=== PATIENT | female | born 1980 | race American Indian/Alaskan Native ===

== ENCOUNTER 2018-09-11 15:42 | Emergency (ER) | payer BC ==
[2018-09-11 15:45] VITALS: BMI 32.1
[2018-09-11] MEDS ORDERED: Betamethasone Soluspan 30 mg/5mL Inj Susp IM ONE (15:45)
--- NOTE | 2018-09-11 17:58 | OBHP ---
Datetime: 09/11/2018 16:06 IP Adm Impression: , intrauterine IP Admit Plan: Observation/Evaluation; Discharge home Admit Comment, IP Provider: 38-year-old at 36.0 weeks EGA of di-di twin presents f or first betamethasone injection. No complications with thus far, scheduled repeat c/s this 09/15. First resulted in c/s as pt was induced 10 days after EDDIE and failed to dil ate. OBGYN Dr Dorantes, last seen (3 days prior to presentation). Denies vaginal bleeding, loss of fluid and contractions. Endorses good movement. Denies change in vision, headache, dizzines s, CP, SOB, new-onset edema, nausea and vomiting. PMD: Dr Dorantes, next apt 09/14 PMH: hypothyroid Meds: levothyroxine 50mcg daily Allergy: shrimp, NKDA Surg Hx: c/s 2006, no complications Family Hx: denies Labs: wnl as per patient, no conifrmatory medical records ROS: all other systems reviewed and negative unless noted in HPI PE: Gen: NAD, comfortable, VSS CV: RRR Resp: no resp distress Ext: no edema Abd: IUP, no tenderness to palpation A+P: 38-year-old at 36.0 weeks EGA of di-di twin presents for first betamethason e injection. -EFM: reassuring, Twin A FHR 140, Twin B FHR 133, accelerations present, mod variability -Beta IM (#1 of 2) -Return 24h for second injection -F/u with PMD at regularly scheduled apt 09/14 -ED precautions given Case discussed with Dr Emmanuel Bernstein PGY1 Addendum by Dr. Benitez: I have evaluated the patient independently and I agree with the above Pelvic Type - PN: Not Done Extremities - PN: Normal Abdomen - PN: Normal Back - PN: Normal Breast - PN: Not Done Lungs - PN: Normal Heart - PN: Normal Thyroid - PN: Not Done Neurologic - PN: Normal HEENT - PN: Normal General - PN: Normal Vital Signs Provider: Reviewed; Within Normal Limits IP Chief Complaint: Other NICHD Variability Prov Fetus A: Moderate 6-25bpm NICHD Accel Fetus A IP Provider: [id number] NICHD Decel Fetus A IP Provider: None Genitourinary Exam: Not Done DTRs - PN: Not Done
--- NOTE | 2018-09-11 18:10 | OBDCSUM ---
Datetime: 09/11/2018 16:38 Discharged to, Provider: Home Follow up at, Provider: Dr Dorantes Disch Instr Activity: Normal activity Disch Instr Diet: Regular Discharge Time: 09/11/2018 16:39 Follow up in weeks, Provider: 09/14/2018 Disch Referrals: None Discharge Diagnosis Prov Other: encounter for other specified prophylactic measures
== END 2018-09-11 16:30 | disposition home or self-care (01) ==
LOC: H.EROB2 15:42
DX: O30.003 Twin pregnancy, unspecified number of placenta and unspecified number of amniotic sacs, third trimester (principal); Z23 Encounter for immunization; Z87.59 Personal history of other complications of pregnancy, childbirth and the puerperium
CPT/HCPCS: 96372; 99281; J0702

== ENCOUNTER 2018-09-12 16:23 | Emergency (ER) | payer BC ==
[2018-09-11 15:45] VITALS: BMI 32.1
[2018-09-12] MEDS ORDERED: Betamethasone Soluspan 30 mg/5mL Inj Susp IM ONE (16:36)
--- NOTE | 2018-09-12 18:26 | OBHP ---
Datetime: 09/12/2018 16:42 IP Adm Impression: , intrauterine IP Chief Complaint Other: second dose of beta methasone IP Admit Plan: Observation/Evaluation; Discharge home Admit Comment, IP Provider: 38-year-old at 36.1 weeks EGA of di-di twin presents f or first betamethasone injection. No complications with thus far, scheduled repeat c/s this 09/15. First resulted in c/s as pt was induced 10 days after EDDIE and failed to dil ate. Denies vaginal bleeding, loss of fluid and contractions. Endorses movement. Denies change in vision, headache, dizziness, CP, SOB, new-onset edema, nausea and vomiting. PMD: Dr Dorantes, next apt 09/14 PMH: hypothyroid Meds: levothyroxine 50mcg daily Allergy: shrimp, NKDA Surg Hx: c/s 2006, no complications Family Hx: denies Labs: wnl as per patient, no conifrmatory medical records ROS: all other systems reviewed and negative unless noted in HPI PE: Gen: NAD, comfortable, VSS CV: normal breathing effort, RRR Resp: no resp distress Ext: no edema Abd: IUP, no tenderness to palpation A+P: 38-year-old at 36.1 weeks EGA of di-di twin presents for second betamethaso ne injection. -EFM: reassuring, Twin A FHR 150, Twin B FHR 140, accelerations present, mod variability -Beta IM (#2 of 2) -F/u with PMD at regularly scheduled apt 09/14 -ED precautions given Case discussed with Dr. Marla Qureshi [email or web address] OB Hospitalist Addendum: Pt seen and examined by me. 38 yo at 36+1 wks w/ di/di twin ges tation, scheduled for repeat section on ., 09/15/2018, here for second dose of betameth asone for lung matrurity. Baby A- FHT reactive, Baby B -FHT reactive. Pt discharged home, has a f/u appoint w/ Dr. Dorantes on Wed., 09/14/2018. (ES) Pelvic Type - PN: Not Done Extremities - PN: Normal Abdomen - PN: Normal Back - PN: Normal Breast - PN: Not Done Lungs - PN: Normal Heart - PN: Normal Thyroid - PN: Not Done Neurologic - PN: Not Done HEENT - PN: Not Done General - PN: Normal FHR - Baseline A Provider: 120's Contraction Comments Provider: none Gestation - Est Wks by US: 36.1 EGA AdmitDate IP: 36.1 Vital Signs Provider: Reviewed; Within Normal Limits IP Chief Complaint: Other NICHD Variability Prov Fetus A: Moderate 6-25bpm NICHD Accel Fetus A IP Provider: 15X15 FHR Category Provider Fetus A: Category I NICHD Decel Fetus A IP Provider: None Genitourinary Exam: Not Done DTRs - PN: Not Done
--- NOTE | 2018-09-12 18:26 | OBDCSUM ---
Datetime: 09/12/2018 18:13 Discharged to, Provider: Home Follow up at, Provider: Dr Dorantes Disch Instr Activity: Normal activity; May be up to bathroom; May be up for meals; May Shower Disch Instr Diet: Regular Discharge Time: 09/12/2018 18:14 Follow up in weeks, Provider: August and on August schedule for C-S Disch Referrals: None Disch Activity Restrictions: Nothing in vagina - [place], tampons, douche Discharge Diagnosis Prov Other: Di/di twin gestation at 36+ weeks for second dose of betamethasone
[2018-09-12 22:57] VITALS: BP 132/88; PULSE 107; O2SAT 100
== END 2018-09-12 18:20 | disposition home or self-care (01) ==
LOC: H.EROB2 16:23
DX: O30.003 Twin pregnancy, unspecified number of placenta and unspecified number of amniotic sacs, third trimester (principal); Z23 Encounter for immunization; Z3A.36 36 weeks gestation of pregnancy
CPT/HCPCS: 96372; 99282; J0702

== ENCOUNTER 2018-09-15 08:25 | Inpatient (IN) | payer BC ==
[2018-09-15] MEDS ORDERED: ceFAZolin 2 GM in Sodium Chloride 0.9% 100 ML IVPB ONE (08:27)
[2018-09-15] MEDS ORDERED: Lactated Ringer's 1,000 ML IV ONE (08:27)
[2018-09-15] MEDS ORDERED: Lactated Ringer's 1,000 ML IV SCH (08:30)
[2018-09-15] MEDS ORDERED: Oxytocin 30 UNIT in NS 500 ml 30 UNITS/500 ML BAG IV ONE (08:33)
[2018-09-15] MEDS ORDERED: OXYTOCIN/0.9 % NS 20 UNIT/1,000 ML BAG IV ONE (08:33)
--- NOTE | 2018-09-15 09:08 | OBADHP ---
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 PMH: ANemia PSH: denies FHX: denies MEDS; PNS< SHX: negative x 3 A/P @ 36+ wks di/di twins in labor admit to L+D npo, ivrf told vs pltcs dw paeitn pt opted for cxs Pelvic Type - PN: Adequate Extremities - PN: Normal Abdomen - PN: Normal Back - PN: Normal Breast - PN: Normal Lungs - PN: Normal Heart - PN: Normal Thyroid - PN: Normal Neurologic - PN: Normal HEENT - PN: Normal General - PN: Normal Presentation-Admit: Vertex FHR - Baseline A Provider: 140 Membranes, Provider: Intact Contraction Comments Provider: q 3-5 min Gestation - Est Wks by US: 36.4 IP Hx Assessment: The History has been Reviewed and is Current Vital Signs Provider: Reviewed IP Chief Complaint: Uterine contractions NICHD Variability Prov Fetus A: Moderate 6-25bpm FHR Category Provider Fetus A: Category I NICHD Decel Fetus A IP Provider: None Dilatation, Provider: 2 Effacement, Provider: 50 Station, Provider: -2 Genitourinary Exam: Normal DTRs - PN: Normal EGA AdmitDate IP: 36.4 IP Adm Impression: , intrauterine IP Admit Plan: Admit to unit Datetime: 09/12/2018 16:42 IP Chief Complaint Other: second dose of beta methasone NICHD Accel Fetus A IP Provider: 15X15
[2018-09-15 09:12] LABS: BASO # 0.1 K/uL (0.0-0.2); BASO % 0.6 % (0.0-2.0); EOS % 0.5 % (0.0-4.0); HEMOGLOBIN 10.4 g/dL (12.0-16.0); LYMPH % 22.6 % (20.0-40.0); MEAN CELL VOLUME 81.6 fl (81.0-99.0); MEAN CORPUSCULAR HGB CONC 33.1 g/dL (33.0-37.0); MEAN PLATELET VOLUME 9.8 fl (7.2-11.7); MONO # 0.9 K/uL (0.0-0.8); MONO % 10.5 % (0.0-10.0); NEUT # 5.9 K/uL (1.8-7.0); NEUT % 65.8 % (50.0-75.0); NRBC % 0.2 % (0.0-0.0); RBC 3.84 Mil/uL (3.80-5.20); RED CELL DISTRIBUTION WIDTH 15.7 % (11.5-14.5); WHITE BLOOD COUNT 8.9 K/uL (4.8-10.8)
[2018-09-15] MEDS ORDERED: Oxycodone/Acetaminophen 5/325 mg Tab PO PRN ×4 (10:41→14:05)
--- NOTE | 2018-09-15 11:28 | OBDS ---
DELIVERY PERSONNEL Delivery Doctor: Michelle Dorantes MD Scrub Nurse: Michelle Vance OBT Driller Multiple Spindle: MSusan Ruiz; Chris Morales Anesthesiologist: Dr. Ward MATERNAL INFORMATION Delivery Anesthesia: Spinal Medications in Delivery: Ancef 2g; Lactated Ringers Maternal Complications: None Provider Comments: repaet cxs uncompliated live male infant chase breech baby a, cehpacl bay b aprs 9,9 for boht baby ebl 800ml melanie uteur, tues and ovarie b/l peds [facility] for [facility] LABOR SUMMARY EDC: 10/09/2018 00:00 No. Babies in Womb: 2 LABOR INFORMATION Group B Beta Strep: Not Done STAGES OF LABOR Stage 3 hrs: 0 Stage 3 min: 2 VAGINAL DELIVERY Episiotomy: None Laceration Extension: N/A Laceration Type: None CSECTION DELIVERY Primary Indication: Multiple Gestation Secondary Indication: N/A CSection Urgency: Non Elective CSection Incidence: Repeat Labor: N/A CSection Incision: Lower Uterine Transverse BABY A INFORMATION Infant Delivery Date/Time: 09/15/2018 10:58 Method of Delivery: Born in Route : No : N/A Forceps: N/A Vacuum Extraction: N/A Shoulder Dystocia : No SHOULDER DYSTOCIA BABY A Infant Delivery Date/Time: 09/15/2018 10:58 PRESENTATION/POSITION BABY A Presentation: Breech PLACENTA INFORMATION BABY A Placenta Delivery Time : 09/15/2018 11:00 Placenta Method of Delivery: Expressed Placenta Status: Delivered INFANT INFORMATION BABY A Gestational Age at Delivery: 36.4 Gestational Status: Outcome : Liveborn Infant Condition : Stable Infant Sex: Male IDENTIFICATION/MEDS BABY A ID Band Location: Left Leg; Left Arm CORD INFORMATION BABY A No. Cord Vessels: 3 Nuchal Cord : N/A Cord Blood Taken: Yes ASSESSMENT BABY A Infant Complications: None Physical Findings at Delivery: Within Normal Limits Infant Respirations: Appears Normal Hearing Screen Coordinator/ALS Called : No
[2018-09-15] MEDS: Lactated Ringer's 1,000 ML IV SCH (20:30)
[2018-09-16] MEDS: Lactated Ringer's 1,000 ML IV SCH (04:13)
[2018-09-16 05:33] LABS: HEMOGLOBIN 9.5 g/dL (12.0-16.0); MEAN CELL VOLUME 81.4 fl (81.0-99.0); MEAN CORPUSCULAR HEMOGLOBIN 26.9 pg (27.0-31.0); MEAN CORPUSCULAR HGB CONC 33.1 g/dL (33.0-37.0); RBC 3.53 Mil/uL (3.80-5.20); RED CELL DISTRIBUTION WIDTH 15.4 % (11.5-14.5); WHITE BLOOD COUNT 16.7 K/uL (4.8-10.8)
[2018-09-16] MEDS: Multivitamin With Minerals Tab PO SCH (08:35)
[2018-09-16] MEDS ORDERED: Multivitamin With Minerals Tab PO SCH (09:00)
[2018-09-16] MEDS ORDERED: Simethicone 80 mg Chewtab PO SCH (16:00)
[2018-09-16] MEDS: Simethicone 80 mg Chewtab PO SCH ×2 (16:42→22:22)
--- NOTE | 2018-09-16 20:16 | OBPPN ---
Datetime: 09/16/2018 20:13 PP Pain Prov: Within normal limits PP Nausea Prov: Denies PP Flatus Prov: Yes PP BM Prov: Yes PP Breasts Prov: Normal PP Heart Prov: Normal PP Lungs Prov: Normal PP Abdomen/Uterus Prov: Normal PP Lochia Prov: Normal PP Vulva/Perineum Prov: Normal PP CVA Tenderness Prov: Normal PP Extremities Prov: Normal PP C/S Incision Prov: Normal PP Progress Prov: Normal PP Impression Prov: Normal progression PP Plan Prov: Continue present management PP Progress Note Prov: pt seen and examien shea rpeorts pain over incicsion site somethwat contolled with medcaion. pt is ambaitnb, passign flatus, urinating. pt is breast feeding. denies any fever, ch ills, nasue, voiting cp, sob, dizyznees, lightheadd, VSS PE see above IINCIO C/D/I healing well no uteirne tendnere moderatel lohcai, non foul smelling a/p s/p RLTCS POD #1 doing well, currenlty stable pain managment dc morton encouarge ambation evelyn regimen iron/coalce encouarge breast feeding am cbc synthroid IP PP Procedures: None Vital Signs Provider PP: Reviewed; Within Normal Limits
[2018-09-16] MEDS ORDERED: Docusate-Senna 50 mg-8.6 mg Tab PO SCH ×2 (22:00)
[2018-09-17] MEDS: Levothyroxine 75 MCG TAB PO SCH (06:28)
[2018-09-17] MEDS: Simethicone 80 mg Chewtab PO SCH ×4 (06:28→21:50)
[2018-09-17 07:23] LABS: BASO % 0.2 % (0.0-2.0); EOS # 0.1 K/uL (0.0-0.7); EOS % 0.5 % (0.0-4.0); HEMOGLOBIN 8.4 g/dL (12.0-16.0); LYMPH % 12.1 % (20.0-40.0); MEAN CELL VOLUME 79.9 fl (81.0-99.0); MEAN CORPUSCULAR HEMOGLOBIN 26.8 pg (27.0-31.0); MEAN CORPUSCULAR HGB CONC 33.5 g/dL (33.0-37.0); MEAN PLATELET VOLUME 9.1 fl (7.2-11.7); MONO # 1.6 K/uL (0.0-0.8); MONO % 9.5 % (0.0-10.0); NEUT # 12.8 K/uL (1.8-7.0); NEUT % 77.7 % (50.0-75.0); NRBC % 0.1 % (0.0-0.0); RBC 3.14 Mil/uL (3.80-5.20); RED CELL DISTRIBUTION WIDTH 15.7 % (11.5-14.5); WHITE BLOOD COUNT 16.4 K/uL (4.8-10.8)
[2018-09-17] MEDS: Multivitamin With Minerals Tab PO SCH (09:03)
--- NOTE | 2018-09-17 13:23 | OBPPN ---
Datetime: 09/17/2018 13:17 PP Pain Prov: Within normal limits PP Nausea Prov: Denies PP Flatus Prov: Yes PP BM Prov: No PP Abdomen/Uterus Prov: Normal PP Lochia Prov: Normal PP C/S Incision Prov: Normal PP Progress Prov: Normal PP Impression Prov: Normal progression PP Plan Prov: Continue present management PP Progress Note Prov: POD 2 s/p repeat cesaren section for twins, doing well, breast feeding Continue current management Vital Signs Provider PP: Reviewed
[2018-09-18] MEDS: Simethicone 80 mg Chewtab PO SCH (04:07)
[2018-09-18] MEDS: Levothyroxine 75 MCG TAB PO SCH (06:56)
--- NOTE | 2018-09-18 08:41 | OBPPN ---
Datetime: 09/18/2018 08:36 PP Pain Prov: Within normal limits PP Nausea Prov: Denies PP Flatus Prov: Yes PP BM Prov: Yes PP Abdomen/Uterus Prov: Normal PP Lochia Prov: Normal PP Extremities Prov: Normal PP C/S Incision Prov: Normal PP Comments Phys Exam Prov: Incision intact PP Impression Prov: Normal progression PP Plan Prov: Discharge PP Progress Note Prov: POD 3 s/p repeat cesrean section for twins, doing well, breast feeding Rx's motrin, percocet and Slow Fe to be given to pt Discharge home today Vital Signs Provider PP: Reviewed
--- NOTE | 2018-09-18 08:41 | OBDCSUM ---
Datetime: 09/18/2018 08:38 Discharged to, Provider: Home Follow up at, Provider: Dr. Dorantes Disch Instr Activity: Normal activity; May Shower Disch Instr Diet: Regular Discharge Instructions, Provider: Routine instructions given Discharge Diagnosis, Provider: Delivery Discharge Time: 09/18/2018 08:38 Follow up in weeks, Provider: 1 week Disch Activity Restrictions: No exercising; No lifting; No driving; No sexual activity; Nothing in v agina - [place], tampons, douche
[2018-09-18] MEDS: Multivitamin With Minerals Tab PO SCH (09:27)
[2018-09-18 20:27] VITALS: BP 127/74; PULSE 103; RESP 20; TEMP 98.7; O2SAT 98
--- NOTE | 2018-09-21 08:55 | OP ---
PROCEDURE DATE: 09/15/2018 PREOPERATIVE DIAGNOSES: Dichorionic-diamniotic twin , presentation, labor, and prior section. POSTOPERATIVE DIAGNOSES: Dichorionic-diamniotic twin , presentation, labor, and prior section. PROCEDURE PERFORMED: Repeat low transverse section. SURGEON: Michelle Dorantes MD CHAIN TENDER: Herbie Hummel MD ANESTHESIA: Spinal. OPERATIVE FINDINGS: Live male infants, chase breech baby A and cephalic baby B. Apgars 9 and 9 on both babies. Automotive Project Engineer present for delivery. Dr. Herbie Hummel, surgical first assistant, was present for the entire case and essential in gaining entry, retraction, exposure, holding the bladder blade, helping to delivery of the babies, closing all layers, obtaining hemostasis, and present for the entire case. ESTIMATED BLOOD LOSS: 800 mL. BLOOD PRODUCTS: None. COMPLICATIONS: None. SPECIMEN: Placenta. DESCRIPTION OF THE PROCEDURE: The patient was taken to the operating room where she was given spinal anesthesia. Once it was found to be adequate, she was placed on the operating room table in dorsal supine position. The patient was prepped and draped in the usual sterile fashion. A time-out was performed, confirmed correct patient and correct procedure. Bimanual exam was performed. The patient was noted to be dilated in the early labor after a prior section. A Pfannenstiel skin incision was made with a scalpel and carried down to the underlying fascia with the Bovie. The fascia was incised in the midline and extended laterally with the Bovie. The inferior aspect of the fascial incision was grasped with Allis and Pranav clamps and the underlying rectus muscles were dissected off bluntly. Attention was then turned to the superior aspect of the incision in a similar fashion. It was grasped with Allis and Pranav clamps and the underlying rectus muscles were dissected off bluntly. The rectus muscles were then bluntly in the midline. The peritoneum was identified and entered in clear space. The incision was extended laterally and superiorly until there was good visualization of the bladder. The lower end of the [place] was then inserted. The vesicouterine peritoneum was incised with Metzenbaum scissors and extended laterally. A bladder flap was created digitally. The lower end of the [place] was then re-inserted. The lower uterine segment was incised in a transverse fashion and extended laterally with bandage scissors. The surgeon's hand entered the uterine cavity. Amniotic membranes were then ruptured. Baby A was then delivered in a chase breech presentation. Both oral and nasal passages of the baby were bulb suctioned. The umbilical cord was clamped and cut. Baby was handed off to the awaiting staff therapist. Following this, baby B was then brought to the uterine incision and after amniotic membranes were then ruptured, . The umbilical cord was clamped and cut. Baby was handed off to the awaiting staff therapist. Cord blood and cord gases were collected and sent x2. The placenta was then delivered manually. The uterus was cleared of all clots and debris. The uterine incision was repaired with a 0 Vicryl in a running continuous locked fashion. A second layer of same suture was used to close the uterus in a running imbricating manner. The uterus was then returned to the abdomen. Pericolic gutters were cleared of all clots and debris. There was good hemostasis in the uterine incision. There was normal tubes and ovaries bilaterally. The peritoneum was reapproximated and closed with 2-0 chromic in an running continuous fashion. The rectus was reapproximated and closed with 2-0 chromic in an interrupted manner. The fascia was reapproximated and closed with 0-Vicryl in a running continuous fashion. The subcutaneous space was closed with 2-0 plain in an interrupted manner. The skin was reapproximated and closed with 4-0 Monocryl in a running subcuticular fashion. At the end of the procedure, all needle, sponge, and instrument counts were noted to be correct x2. The patient tolerated the procedure well and was transferred to the recovery room in stable condition. Michelle Dorantes MD
== END 2018-09-18 11:20 | disposition home or self-care (01) | DRG 786 ==
LOC: H.EROB2 08:25 → H.L&D 08:27 → H.OB/GYN 15:41
PROVIDERS: ADMIT Obstetrics & Gynecology; ATTEND Obstetrics & Gynecology
PROC: 10D00Z1 Extraction of Products of Conception, Low, Open Approach (ICD-10-PCS; principal; 2018-09-15)
DX: O30.043 Twin pregnancy, dichorionic/diamniotic, third trimester (principal); O60.14X1 Preterm labor third trimester with preterm delivery third trimester, fetus 1; O60.14X2 Preterm labor third trimester with preterm delivery third trimester, fetus 2; O32.1XX2 Maternal care for breech presentation, fetus 2; O34.211 Maternal care for low transverse scar from previous cesarean delivery; O99.02 Anemia complicating childbirth; Z37.2 Twins, both liveborn; Z3A.36 36 weeks gestation of pregnancy